=== PATIENT | female | born 1965 | race Caucasian/White ===

== ENCOUNTER 2021-08-07 16:14 | Emergency (ER) | payer BC ==
[2021-08-07] MEDS ORDERED: Phenazopyridine 95 MG Tab PO ONE (17:18)
[2021-08-07] MEDS ORDERED: Cephalexin 500 MG Cap PO ONE (17:18)
--- NOTE | 2021-08-07 17:21 | EDM.PDOC ---
Scribed by Sara Rosa 08/07/21 1721 for Gera Talamantes MD ED HPI GENERAL MEDICAL PROBLEM - General Chief Complaint: Genitourinary Problem Stated Complaint: POSSIBLE UTI Time Seen by Provider: 08/07/21 17:04 Source of Information: Reports: Patient, RN, RN Notes Reviewed History Limitations: Reports: No Limitations - History of Present Illness INITIAL COMMENTS - FREE TEXT/NARRATIVE: Patient presents to ED by POV with complaint of frequency, urgency, and burning with urination. Patient states that this started last week and she thought she could cure it with cranberry juice. Patient states that over the past few days it has gotten progressively worse. Patient denies pain at this time but states that she has pain with urination. Patient denies fever/chills but states that she does have some lower back pain, but also has musculoskeletal problems with her lower back. Onset: Gradual Duration: Getting Worse Location: Reports: Back Quality: Reports: Ache Severity: Moderate Improves with: Reports: None Worsens with: Reports: None Associated Symptoms: Reports: No Other Symptoms - Related Data Allergies Allergy/AdvReac Type Severity Reaction Status Date / Time No Known Allergies Allergy Verified 08/07/21 16:22 Home Meds: Home Meds Aspirin 81 mg PO DAILY 06/24/21 [History] Cartilage/Collagen/Bor/Hyalur [Joint Health Tablet] 1 tab PO BID 06/24/21 [History] Cholecalciferol (Vitamin D3) [Vitamin D3] 400 unit PO DAILY 06/24/21 [History] Codeine/guaiFENesin [Robitussin AC] 5 ml PO TID PRN 06/24/21 [History] Multivitamin 1 each PO DAILY 06/24/21 [History] Tumeric/Ging/[place]/Oreg/Capryl [Candicidal Capsule] 1 tab PO DAILY 06/24/21 [History] Past Medical History HEENT History: Reports: None Cardiovascular History: Reports: Blood Clots/VTE/DVT, Other (See Below) Other Cardiovascular History: VARICOSE VEINS Respiratory History: Reports: Other (See Below) Other Respiratory History: Covid 19 positive 06/20/21 Gastrointestinal History: Reports: None Genitourinary History: Reports: None 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: Musculoskeletal History: Reports: None Neurological History: Reports: None Psychiatric History: Reports: None Endocrine/Metabolic History: Reports: Obesity/BMI 30+ Hematologic History: Reports: None Immunologic History: Reports: None Oncologic (Cancer) History: Reports: None Dermatologic History: Reports: None - Infectious Disease History Infectious Disease History: Reports: Chicken Pox, Novel Coronavirus - Past Surgical History Head Surgeries/Procedures: Reports: None HEENT Surgical History: Reports: Adenoidectomy, Tonsillectomy Cardiovascular Surgical History: Reports: None Respiratory Surgical History: Reports: None GI Surgical History: Reports: None Female Surgical History: Reports: Section Endocrine Surgical History: Reports: None Neurological Surgical History: Reports: None Oncologic Surgical History: Reports: None Social & Family History - Tobacco Use Tobacco Use Status *Q: Never Tobacco User Second Hand Smoke Exposure: Yes - Caffeine Use Caffeine Use: Reports: Coffee Caffeine Use Comment: 1. CUP DAILY - Recreational Drug Use Recreational Drug Use: No ED ROS GENERAL - Review of Systems Review Of Systems: Comprehensive ROS is negative, except as noted in HPI. ED EXAM, RENAL/ - Physical Exam Exam: See Below Exam Limited By: No Limitations General Appearance: Alert, WD/WN, No Apparent Distress, Obese Throat/Mouth: Normal Voice Head: Atraumatic, Normocephalic Respiratory/Chest: No Respiratory Distress, Lungs Clear Cardiovascular: Regular Rate, Rhythm GI/Abdominal: Normal Bowel Sounds, Soft, Tender (Mild suprapubic tenderness). No: Guarding, Rigid, Rebound Back Exam: No: CVA Tenderness (L), CVA Tenderness (R), Vertebral Tenderness Neurological: Alert, Oriented Psychiatric: Normal Mood Skin Exam: Warm, Dry, Normal Color Course - Vital Signs Last Recorded V/S: Last Vital Signs Temp 96.9 F 08/07/21 16:23 Pulse 84 08/07/21 16:23 Resp 16 08/07/21 16:23 BP 157/109 H 08/07/21 16:23 Pulse Ox 95 08/07/21 16:23 - Orders/Labs/Meds Orders: Active Orders 24 hr Category Date Time Status CULTURE URINE [RM] Stat Lab 08/07/21 16:20 Received Phenazopyridine [Urinary Pain Relief] Med 08/07/21 17:18 Once 190 mg PO ONETIME ONE cephALEXin [Keflex] Med 08/07/21 17:18 Once 500 mg PO ONETIME ONE Labs: Laboratory Tests 08/07/21 Range/Units 16:20 Urine Color Yellow (YELLOW) Urine Appearance Clear (CLEAR) Urine pH 7.5 (5.0-9.0) Ur Specific [place] 1.020 (1.005-1.030) Urine Protein Negative (NEGATIVE) Urine Glucose (UA) Negative (NEGATIVE) Urine Ketones Negative (NEGATIVE) Urine Occult Blood Small H (NEGATIVE) Urine Nitrite Negative (NEGATIVE) Urine Bilirubin Negative (NEGATIVE) Urine Urobilinogen 0.2 (0.2-1.0) mg/dL Ur Leukocyte Esterase Small H (NEGATIVE) Urine RBC 5-10 H (0-5) /HPF Urine WBC 40-50 H (0-5/HPF) /HPF Ur Epithelial Cells Moderate H (NOT SEEN) /HPF Urine Bacteria Rare (0-FEW/HPF) /HPF Departure - Departure Time of Disposition: 17:20 Disposition: Home, Self-Care 01 Condition: Good Clinical Impression: UTI, Urinary tract infectious disease, Dysuria - Discharge Information *PRESCRIPTION DRUG MONITORING PROGRAM REVIEWED*: Not Applicable *COPY OF PRESCRIPTION DRUG MONITORING REPORT IN PATIENT GARRY: Not Applicable Instructions: Urinary Tract Infection, Adult, Dysuria Forms: ED Department Discharge Additional Instructions: Rx: Cephalexin 500mg Rx: Pyridium 200mg Drink plenty of water. Follow up in clinic if not improving in 3 days. Sepsis Event Note (ED) - Evaluation Sepsis Screening Result: No Definite Risk - Focused Exam Vital Signs: Vital Signs Temp Pulse Resp BP Pulse Ox 08/07/21 16:23 96.9 F 84 16 157/109 H 95 - My Orders Last 24 Hours: My Active Orders 08/07/21 16:20 CULTURE URINE [RM] Stat 08/07/21 17:18 Phenazopyridine [Urinary Pain Relief] 190 mg PO ONETIME ONE cephALEXin [Keflex] 500 mg PO ONETIME ONE - Assessment/Plan Last 24 Hours: My Active Orders 08/07/21 16:20 CULTURE URINE [RM] Stat 08/07/21 17:18 Phenazopyridine [Urinary Pain Relief] 190 mg PO ONETIME ONE cephALEXin [Keflex] 500 mg PO ONETIME ONE I have read and agree with the documentation that has been completed regarding this visit. By signing this record, I attest that the documentation was completed in my physical presence and is an accurate record of the encounter.
== END 2021-08-07 17:29 | disposition home or self-care (01) ==
LOC: DL.ED 16:14
DX: N39.0 Urinary tract infection, site not specified (principal); R30.0 Dysuria; E66.9 Obesity, unspecified; Z77.22 Contact with and (suspected) exposure to environmental tobacco smoke (acute) (chronic); Z86.16 Personal history of COVID-19; Z79.82 Long term (current) use of aspirin; Z79.899 Other long term (current) drug therapy
CPT/HCPCS: 81001; 87086; 87088; 87186; 99283; A9270

== ENCOUNTER 2023-05-15 06:37 | Day surgery (SDC) | payer BC ==
[~2023-05-15 06:37] MED LIST: Dextrose 5%-0.45% NaCl 1,000 ML IV SCH; Sodium Chloride 0.9% 10 ML Syringe FLUSH PRN
[2023-05-15] MEDS ORDERED: Midazolam 1 MG/ML 2 ML SDV IV ONE ×7 (06:41→07:28)
[2023-05-15] MEDS ORDERED: fentaNYL 100 MCG/2 ML SDV IV ONE ×3 (06:41→07:20)
[2023-05-15] MEDS ORDERED: Midazolam 1 MG/ML 2 ML SDV ONE (06:41)
[2023-05-15] MEDS ORDERED: fentaNYL 100 MCG/2 ML SDV ONE (06:41)
== END 2023-05-15 09:30 | disposition home or self-care (01) ==
LOC: DL.ENDO 06:37
PROVIDERS: ATTEND Internal Medicine Gastroenterology
DX: Z12.11 Encounter for screening for malignant neoplasm of colon (principal); K64.8 Other hemorrhoids; E66.09 Other obesity due to excess calories; Z98.890 Other specified postprocedural states; Z68.41 Body mass index [BMI] 40.0-44.9, adult
CPT/HCPCS: 45378; J2250; J3010; J7042